=== PATIENT | female | born 1965 | race Caucasian/White ===

== ENCOUNTER 2017-11-07 07:16 | Emergency (ER) | payer MEDICAID ==
[~2017-11-07] VITALS: Ht 162.6 cm; Wt 63.5 kg
--- NOTE | 2017-11-07 17:27 | NUR ---
in room 2a c/o left ear ache
--- NOTE | 2017-11-07 17:27 | NUR ---
John rust in [facility] - 11/07/17 at 1727 by MELODY in room 2a. jojo complaints presented except left ear ache
[2017-11-07] MEDS ORDERED: TRAMADOL HCL 50 MG TABLET PO ONE (18:00)
[2017-11-07] MEDS ORDERED: predniSONE 50 MG TABLET PO ONE (18:00)
[2017-11-07] MEDS ORDERED: AMOXICILLIN-CLAVUL 875-125MG TABLET PO ONE (18:00)
[2017-11-07] MEDS ORDERED: TRAMADOL HCL 50 MG TABLET ONE (18:01)
[2017-11-07] MEDS ORDERED: AMOXICILLIN-CLAVUL 875-125MG TABLET ONE (18:01)
[2017-11-07] MEDS ORDERED: predniSONE 50 MG TABLET ONE (18:01)
--- NOTE | 2017-11-07 18:02 | NUR ---
Patient discharged to home in stable conditon. Written and verbal after care instructions given. Patient verbalizes understanding of instructions.
== END 2017-11-07 18:05 | disposition home or self-care (01) ==
LOC: ER 07:16
DX: H66.92 Otitis media, unspecified, left ear (principal); Z88.8 Allergy status to other drugs, medicaments and biological substances
CPT/HCPCS: A4663; J7512

== ENCOUNTER 2019-01-09 13:04 | Emergency (ER) | payer BC, OTHER ==
[~2019-01-09] VITALS: Ht 162.6 cm; Wt 59.4 kg
--- NOTE | 2019-01-09 13:37 | NUR ---
Patient discharged to home in stable conditon. Written and verbal after care instructions given. Patient verbalizes understanding of instructions.
== END 2019-01-09 13:40 | disposition home or self-care (01) ==
LOC: ER 13:04
DX: H66.91 Otitis media, unspecified, right ear (principal); Z88.5 Allergy status to narcotic agent
CPT/HCPCS: A4663

== ENCOUNTER 2022-09-12 19:39 | Emergency (ER) | payer BC, MEDICAID ==
[~2022-09-12] VITALS: Ht 162.6 cm; Wt 68.9 kg
--- NOTE | 2022-09-12 20:30 | NUR ---
Dr. Chaudhary at bedside for MSE.
--- NOTE | 2022-09-12 20:52 | NUR ---
Patient discharged to home in stable condition. Written and verbal after care instructions given. Patient verbalizes understanding of instructions. Stressed follow up or return to ER for worsening s/s. Patient out of ER with steady gait, no acute signs of distress, VSS, all belongings taken.
[2022-09-12 20:54] VITALS: BP 112/76
== END 2022-09-12 20:54 | disposition home or self-care (01) ==
LOC: ER 19:39
DX: R42 Dizziness and giddiness (principal); Z88.5 Allergy status to narcotic agent
CPT/HCPCS: A4663

== ENCOUNTER 2022-11-14 19:07 | Emergency (ER) | payer MEDICAID ==
[~2022-11-14] VITALS: Ht 162.6 cm; Wt 67.1 kg
[2022-11-14 20:25] LABS: MEAN CORPUSCULAR HEMOGLOBIN 29.9 uug (24.7-32.8); MEAN CORPUSCULAR VOLUME 88.1 fL (75.5-95.3); PLATELET COUNT (AUTO) 356 K/uL (179-408)
[2022-11-14 20:36] LABS: CARBON DIOXIDE 27 mmol/L (21-32); CHLORIDE 103 mmol/L (98-107); CREATININE 0.9 mg/dL (0.6-1.3); GLUCOSE 87 mg/dL (74-106); POTASSIUM 3.5 mmol/L (3.5-5.1); UREA NITROGEN, BLOOD 10 mg/dL (7-18)
[2022-11-14 20:44] LABS: ALANINE AMINOTRANSFERASE 22 U/L (14-59); ALKALINE PHOSPHATASE 89 U/L (50-136); ASPARTATE AMINOTRANSFERASE 17 U/L (15-37); BILIRUBIN,DIRECT 0.1 mg/dL (0.0-0.2); BILIRUBIN,TOTAL 0.4 mg/dL (0.2-1.0); TOTAL PROTEIN, SERUM 7.6 g/dL (6.4-8.2)
[2022-11-14] MEDS ORDERED: MAG HYDROX/AL HYDROX/SIMETH 30 ML LIQUID UDC PO ONE (22:00)
[2022-11-14] MEDS ORDERED: LIDOCAINE VISCUS 2% 15 ML UDC MM ONE (22:00)
--- NOTE | 2022-11-14 22:05 | NUR ---
Patient refused Xylocaine viscus 15ml and maalox suspension 30ml. Dr. Bonner notified.
--- NOTE | 2022-11-14 23:36 | NUR ---
Patient ambulated to the bathroom indepedently. No signs of distress noted.
--- NOTE | 2022-11-14 23:52 | NUR ---
Patient discharged to home in stable condition. Written and verbal after care instructions given. Patient verbalizes understanding of instructions. Stressed follow up or return to ER for worsening s/s.
[2022-11-14 23:53] VITALS: BP 131/85
== END 2022-11-14 23:53 | disposition home or self-care (01) ==
LOC: ER 19:10
DX: R07.89 Other chest pain (principal); Z88.5 Allergy status to narcotic agent
CPT/HCPCS: 36415; 71045; 84484; 85025; 93005; A4663